=== PATIENT | male | born 1980 | race Hispanic/Latino ===

== ENCOUNTER 2022-03-02 02:51 | Emergency (ER) | payer SELFPAY ==
[~2022-03-02] VITALS: Ht 167.6 cm; Wt 95.3 kg
[2022-03-02] MEDS ORDERED: ELIMITE60 GM TOP (03:34)
[2022-03-02] MEDS ORDERED: HYDROXYZINE25 MG/ML PO (03:34)
[2022-03-02] MEDS ORDERED: PREDNISONE50 MG PO (03:34)
== END 2022-03-02 03:40 | disposition home or self-care (01) ==
LOC: FSED 03:23
DX: R21 Rash and other nonspecific skin eruption (principal); I10 Essential (primary) hypertension; F20.9 Schizophrenia, unspecified
CPT/HCPCS: 99282